=== PATIENT | female | born 1995 | race Caucasian/White ===

== ENCOUNTER 2016-10-23 12:43 | Outpatient (CLI) | payer OTHER ==
[2017-02-17] MEDS ORDERED: IBUPROFEN600 MG PO (10:51)
== END 2016-10-23 14:18 | disposition home or self-care (01) ==
LOC: GENOP 12:43
DX: O36.8120 Decreased fetal movements, second trimester, not applicable or unspecified (principal); Z3A.23 23 weeks gestation of pregnancy
CPT/HCPCS: 81001; G0463

== ENCOUNTER 2017-02-12 19:28 | Outpatient (CLI) | payer OTHER | END 2017-02-12 21:06 | disposition home or self-care (01) | LOC: GENOP 19:28 | DX: O36.8130 Decreased fetal movements, third trimester, not applicable or unspecified (principal); Z3A.39 39 weeks gestation of pregnancy | CPT/HCPCS: G0463 ==